=== PATIENT | female | born 1955 | race Caucasian/White ===

== ENCOUNTER 2016-09-03 12:57 | Emergency (ER) | payer MEDICAID ==
--- NOTE | 2016-09-04 20:08 | ER ---
ADMIT: 09/03/2016 RM/LOC: ER [facility] MR#: [id number] [address] [address] MALKA GORMAN [address] [place] [address] Emergency Room Report SEX: F AGE: 61 : 1955 DATE: 09/03/2016 ADDENDUM: This patient comes to the ER because she is having shortness of breath for the last 2 days. She was originally at Urgent Care and was sent here. In the ER, her O2 saturation is 96%. She has known COPD and she is a smoker. She was having decreased airway movement. We started an IV. She was given a DuoNeb that was rather repeated and received Decadron 15 mg IV. When I went to re-evaluate her, she was feeling better. Her chest x-ray showed a possible right lobe infiltrate. She was given Levaquin in the ER. I wrote a prescription for Levaquin and prednisone, and she is to continue with her inhalers. Return to the ER. Follow up with her primary if any shortness of breath or difficulty breathing or not keeping medicine down. EPIFANIO Oswald / Vanessa Vallejo MD / jaime JOB #: [id number] CC: Giuseppe Patel MD, Attending Physician UNKNOWN, Family Physician
[2016-11-30] MEDS ORDERED: ELIQUIS2.5 MG PO (12:01)
[2016-11-30] MEDS ORDERED: LEVOTHYROXINE50 MCG PO (12:01)
[2016-11-30] MEDS ORDERED: DUONEB DPS3 ML IH (12:02)
[2016-11-30] MEDS ORDERED: ANORO ELLIPTA 62.1 - IH (12:02)
[2016-11-30] MEDS ORDERED: PROVENTIL2.5 MG/3 M IH (12:02)
[2016-11-30] MEDS ORDERED: AUGMENTIN 250250 MG PO (12:03)
[2016-11-30] MEDS ORDERED: DELTASONE DPS10 MG PO (12:03)
[2016-11-30] MEDS ORDERED: NICOTINE PATCH1 EAC2 TD (12:03)
[2016-11-30] MEDS ORDERED: TYLENOL DPS325 MG PO (12:04)
[2016-11-30] MEDS ORDERED: VIBRAMYCIN-DPS100 M2 PO (12:04)
[2017-02-15] MEDS ORDERED: MAALOX DPS30 ML PO (14:39)
[2017-02-15] MEDS ORDERED: COLACE-DPS100 MG PO (14:39)
[2017-02-15] MEDS ORDERED: NITROSTAT0.4 MG SL (14:40)
[2017-02-15] MEDS ORDERED: SYMBICORT160 MCG/6 IH (14:42)
[2017-02-15] MEDS ORDERED: PEPCID DPS20 MG PO (14:42)
[2017-02-15] MEDS ORDERED: LEVAQUIN DPS500 MG PO (14:42)
== END 2016-09-03 15:20 | disposition home or self-care (01) ==
LOC: ER 12:57
DX: J44.1 Chronic obstructive pulmonary disease with (acute) exacerbation (principal); J18.9 Pneumonia, unspecified organism; E03.9 Hypothyroidism, unspecified; F17.200 Nicotine dependence, unspecified, uncomplicated; Z86.718 Personal history of other venous thrombosis and embolism; Z79.01 Long term (current) use of anticoagulants; Z79.899 Other long term (current) drug therapy

== ENCOUNTER 2016-11-25 10:15 | Inpatient (IN) | payer MEDICAID, OTHER ==
[~2016-11-25] VITALS: Ht 157.5 cm; Wt 37.9 kg
--- NOTE | ~2016-11-25 | ECH ---
Transthoracic Echocardiography Report (TTE) Demographics Patient Name MALKA GORMAN Date of Study 11/27/2016 Patient Number [id number] Visit Number [id number] Date of 1955 Room Number 424 Accession Number [id number] Gender Female Age 61 year(s) Referring James Fernandez Conceptor Aracelis Obrien [facility] Physician Liane Hassan MD Physician Interpreting Sergio AREVALO Mobile Lab Technician Physician Red Supervising Ordering Physician James Fernandez MD/P Nurse Stress Community Health Counselor Conclusions Contractility Score Summary Normal Left Ventricular contractility was noted. Summary Technically fair exam. The estimated left ventricular ejection fraction is 60-65%. Mild left ventricular hypertrophy. No significant valvular abnormalities. Recommendation The patient will be given the results of this study by the physician who ordered the exam. Procedure Type of Study TTE procedure:Echo Complete SF. Procedure Date Date: 11/27/2016 Start: 11:11 AM Technical Quality: Fair due to body habitus. Indications:Chest pain and Shortness of breath. Additional Indications:COPD Appropriate Use Criteria: 9 Height: 62 inches Weight: 78 pounds BSA: 1.28 m Rhythm: Within normal limits HR: 97 bpm BP: 127/71 mmHg M-Mode/2D Measurements LV Diastolic Dimension: 3.48 cm LV Systolic Dimension: 1.59 cm LV Septum Diastolic: 0.93 cm LV PW Diastolic: 1.08 cm AO Root Dimension: 2.79 cm Cardiac Output: 4.21 l/min LA Dimension: 2.56 cm Cardiac Index: 3.29 l/min*m RV Diastolic Dimension: 2.59 cm LA volume index: 29 ml/m LVOT: 1.63 cm LVOT VTI: 20.83 cm RV Base: 3.2 cm LV Stroke volume: 43.44 ml RV Mid: 1.8 cm LV Stroke volume index: 33.94 ml/m RV Length: 5.7 cm TAPSE: 1.9 cm TDI-S': 14 cm/s Doppler Measurements AV Mean Gradient: 3.22 mmHg MV Peak E-Wave: 0.82 m/s LVOT Peak Velocity: 1.07 m/s MV Peak A-Wave: 0.7 m/s AV Area (Continuity):1.81 cm MV P1/2t: 57.7 msec TR Velocity:1.81 m/s TR Gradient:13.09 mmHg MV Deceleration Time: 211.3 msec Estimated RAP:5 mmHg MV Area (PHT): 3.81 cm Estimated RVSP: 18 mmHg PV Peak Velocity: 0.94 m/s PV Peak Gradient: 3.56 mmHg Estimated PASP: 18.09 mmHg RA Area: 10.68 cm Findings Left Ventricle The left ventricle is normal in size . Mild left ventricular hypertrophy. Diastolic assessment reveals normal relaxation. Right Ventricle Normal right ventricle structure and function. Left Atrium Normal left atrial size. Right Atrium Normal right atrial size. Mitral Valve Normal mitral valve structure and function. Trivial mitral regurgitation by color Doppler. Aortic Valve Normal aortic valve structure and function. Tricuspid Valve Normal appearing tricuspid valve. Trivial tricuspid regurgitation by color Doppler. Pulmonic Valve Normal pulmonic valve structure and function. Pericardial Effusion No evidence of pericardial effusion. Miscellaneous Visualized portions of the aortic root and ascending aorta appear normal in size. Pleural Effusion No evidence of pleural effusion. Contractility Score LV regional wall motion:(0-Non visualized 1-Normal 2-Hypokinesis 3-Akinesis 4-Dyskinesis 5-Aneurysm) Signature
--- NOTE | 2016-11-26 14:30 | HP ---
ADMIT: 11/25/2016 RM/LOC: 424 [facility] MR#: [id number] [address] [facility] [address] [place], [place] [address] MALKA GORMAN [address] [place] [address] History and Physical SEX: F AGE: 61 : 1955 DATE OF SERVICE: CHIEF COMPLAINT: Severe shortness of breath, pleuritic right-sided chest pain, and cough. CLINICAL HISTORY: The patient is a very frail, debilitated, 61-year-old female from [place], [place], who usually sees Dr. Rob in [place] for her medical care. The patient is admitted to [facility] through the city-call system after presenting to the ER complaining of marked increase in shortness of breath, pleuritic chest pain, and persistent cough. She has a history of COPD with chronic respiratory failure. The patient notes that she was told 7-8 years ago that she had COPD. For the last 6 years, she has really struggled with symptomatic COPD, and for the last 7-8 months, has been on O2 continuously because of her chronic hypoxia. The patient continues to smoke despite her diagnosis of severe COPD and chronic respiratory failure, still is smoking about a half a pack per day even with her O2 on continuously. She notes for the last 2 to 3 days, she has been having some increased respiratory congestion and increased cough. Yesterday, she started having pleuritic right- sided chest discomfort and increased shortness of breath. This morning, the shortness of breath was so severe she had her family bring her to the emergency room. She is evaluated in the ER by Dr. Gerard, who noted on chest x- ray that she had significant right mid lung field infiltrate consistent with pneumonia. It was felt that she has acute pneumonia with associated pleuritic chest pain as well as a significant COPD exacerbation. Admitted at this time for aggressive treatment of her pneumonia and stabilization of her respiratory status. PAST MEDICAL HISTORY: Recent hospitalizations: The patient notes that she was last hospitalized in 2012, hospitalized in [place] with a DVT of her right lower extremity. She has been on anticoagulation since that time. She notes in 2011, she was hospitalized with severe abdominal pain and chronic diarrhea, and was diagnosed with Crohn's disease at that time. PAST SURGICAL HISTORY: Previous surgical procedures include colonoscopy in 2011. She also was noted to have had a left mastectomy in 2006 for breast cancer, a laparoscopic cholecystectomy in 2010 for her acute cholecystitis. She also notes remote past history of hysterectomy as well as previous orthopedic surgery on her knee for what sounds like a torn ACL. She has had no other recent hospitalizations or surgical procedures. CURRENT MEDICATIONS: Her current medications include; 1. Levothyroxine 50 mcg 1 daily. 2. Albuterol metered dose inhaler 2 puffs every 4 hours p.r.n. shortness of breath. 3. Eliquis 2.5 mg b.i.d. 4. Anoro one puff daily. 5. DuoNeb via twin jet nebulizer q.i.d. and p.r.n. ALLERGIES: SHE DENIES ANY KNOWN ALLERGIES. ADMIT: 11/25/2016 RM/LOC: 424 [facility] MR#: [id number] [address] [place] [phone] [facility] [place] [address] History and Physical SEX: F AGE: 61 : 1955 MEDICAL ILLNESSES: Her medical illnesses include severe COPD with chronic respiratory failure. She also has a history of hypothyroidism, Crohn disease, and coagulopathy. SOCIAL HISTORY: The patient is . She notes she continues to work. 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 She notes that she has 2 grown children. She denies any past history of alcohol or drug abuse. She does continue to smoke, used to be a pack-a-day smoker and has smoked for over 40 years, has cut down to a half pack a day in the last year since she was started on oxygen. FAMILY HISTORY: She notes there is a strong family history of diabetes, colon cancer as well as coronary artery disease. She does note that her mother of a cerebral aneurysm. Strong history of stroke and vascular disease in the family. REVIEW OF SYSTEMS: CONSTITUTIONAL: The patient complains of chronic fatigue, tiredness, weakness, poor activity tolerance due to her respiratory impairment. HEENT: No new eye, ear, nose, or throat complaints at this time. No upper respiratory congestion. She denies swallowing difficulties. Does have a history of some seasonal allergies. CARDIAC: She denies any history of coronary artery disease. No history of angina or myocardial infarction. No syncope. She denies orthopnea. GASTROINTESTINAL: She has had some chronic abdominal pain related to her Crohn's disease, eats a very limited diet because of her inflammatory bowel disease. A struggle to maintain her weight. GENITOURINARY: No voiding symptoms at this time. No flank pain or dysuria. MUSCULOSKELETAL: Some generalized arthritic discomfort, diffuse arthritis pain as well as low back pain. NEUROLOGIC: No history of strokes, seizures, or TIAs. ENDOCRINE: Does have history of breast cancer, now 10 years post diagnosis, clinically no evidence of disease. PHYSICAL EXAMINATION: VITAL SIGNS: Her temp is a 100.4, pulse 99, respirations 28, blood pressure 124/67, and O2 saturation 90% with oxygen of 4 L. Current weight 78 pounds. GENERAL: The patient is a 61-year-old female, who appears significantly older than her stated age. She is in no acute distress, but has difficulty talking because she is so short of breath, doing pursed lipped breathing. She is oriented x3. HEENT: Reveals her ears to be clear. Pupils are equal and reactive. Sclerae nonicteric. Her nose and throat are noninflamed. Oral mucous membranes are dry. NECK: Supple. No cervical adenopathy. No neck vein distention. LUNGS: Diminished throughout. Breath sounds are very coarse. She does have some rales in the right mid lung field. ADMIT: 11/25/2016 RM/LOC: 424 [facility] MR#: [id number] [address] [facility] [address] [place], [place] [address] MALKA GORMAN [address] [place] [address] History and Physical SEX: F AGE: 61 : 1955 HEART: Has a regular rhythm. Tachycardia noted. No evidence of failure. ABDOMEN: Thin, scaphoid, nontender. Bowel sounds are normoactive. She has no CVA or suprapubic tenderness. On exam of her chest, should note that she is status post left mastectomy. EXTREMITIES: Noted to have a trace of pedal and ankle edema. No calf tenderness. She has diminished pedal pulses. Feet are cool with poor peripheral circulation. She can move all extremities. No acutely inflamed joints. NEUROLOGIC: She has no focal deficit. Balance is poor due to her generalized weakness. Gait is unsteady. Cranial nerves II through XII are grossly intact. MENTAL STATUS EXAM: She is oriented x3. No significant depressive symptoms. Does not appear acutely anxious. INTEGUMENT: No rashes or areas of skin breakdown. Her pre-admission laboratory work revealed an elevated white count of 15,500, hemoglobin is 14.8, and hematocrit 44.6. Sodium was 133, potassium 4.0, BUN was 10 with a creatinine of 0.7, blood sugar at this time is 90. Procalcitonin was intermediate at 0.74. Lactic acid is 1.7. On her blood gases, on O2 at 4 L/minute, pH of 7.4, pCO2 is 40, and pO2 is 68. Chest x-ray shows severe emphysematous changes with right mid lung field infiltrate consistent with pneumonia. ASSESSMENT AT THE TIME OF ADMISSION: 1. Right middle lobe pneumonia. 2. Acute chronic obstructive pulmonary disease exacerbation due to pneumonia. 3. Severe chronic obstructive pulmonary disease with chronic respiratory failure. 4. Lmxam-ef-dccgeei respiratory failure. 5. History of Crohn's disease. 6. History of breast CA. Clinically, no evidence of disease. 7. Hypothyroidism. 8. Coagulopathy, on long-term anticoagulation. 9. Severe debility due to her advanced pulmonary disease. PLAN: Plan is to admit the patient to [facility]. We will treat aggressively for her pneumonia. We will attempt to stabilize her respiratory status. We will treat with IV Zosyn and IV vancomycin for antibiotic coverage. We will use IV steroids as well as frequent nebulizer treatments. Iron Ramirez MD/ jaime JOB #: [id number] CC: Iron Ramirez MD, Attending Physician Iron Ramirez MD, Family Physician
--- NOTE | 2016-11-27 08:22 | ER ---
ADMIT: 11/25/2016 RM/LOC: 424 [facility] MR#: [id number] [address] [place], [place] [address] MALKA GOMRAN [address] [place] [address] Emergency Room Report SEX: F AGE: 61 : 1955 DATE: 11/25/2016 TIME: 1015 hours. PRIMARY CARE: Nestor Rob MD in [place]. Please refer to my T-sheet for complete H and P. HISTORY OF PRESENT ILLNESS: Briefly, the patient is a 61-year-old, comes in with chest pain and short of breath, has been going on 2 to 3 days. She has a history of severe COPD. She is O2 dependent. She still smokes. She has had pneumonias in the past. She is anticoagulated with Eliquis. PHYSICAL EXAMINATION: VITAL SIGNS: Blood pressure is 126/83, heart rate 126, pulse 30, temp 101.1, and sat 96% on 2 L. GENERAL: She is in mild distress. HEENT: Grossly normal. LUNGS: Decreased breath sounds throughout. Mild respiratory distress with rhonchi noted. HEART: Tachy. ABDOMEN: Soft. SKIN: No rash. EMERGENCY DEPARTMENT COURSE: We did the whole sepsis pathway. We gave her a liter of normal saline bolus. We started antibiotics and blood cultures. Her lactate was 1.7. CBC normal except white count 5.5. Chemistries normal except sodium 133. Total bilirubin 1.9. Cardiac enzymes all negative. CBC is normal except white count of 15.5, blood cultures x2 were sent. Coags are essentially unremarkable. Chest x-ray revealed a right-sided pneumonia. We gave her a DuoNeb, Decadron 10 IV, started the antibiotics. I talked to Dr. Ramirez, will admit. ASSESSMENT: 1. Right-sided pneumonia. 2. Chronic obstructive pulmonary disease, O2 dependent. 3. Early sepsis. PLAN: Admit to the hospital. Alexx Gerard MD/ jaime JOB #: [id number] CC: Iron Ramirez MD, Attending Physician Iron Ramirez MD, Family Physician
[2016-11-30] MEDS ORDERED: ELIQUIS2.5 MG PO (12:01)
[2016-11-30] MEDS ORDERED: LEVOTHYROXINE50 MCG PO (12:01)
[2016-11-30] MEDS ORDERED: PROVENTIL2.5 MG/3 M IH (12:02)
[2016-11-30] MEDS ORDERED: ANORO ELLIPTA 62.1 - IH (12:02)
[2016-11-30] MEDS ORDERED: DUONEB DPS3 ML IH (12:02)
[2016-11-30] MEDS ORDERED: AUGMENTIN 250250 MG PO (12:03)
[2016-11-30] MEDS ORDERED: DELTASONE DPS10 MG PO (12:03)
[2016-11-30] MEDS ORDERED: NICOTINE PATCH1 EAC2 TD (12:03)
[2016-11-30] MEDS ORDERED: VIBRAMYCIN-DPS100 M2 PO (12:04)
[2016-11-30] MEDS ORDERED: TYLENOL DPS325 MG PO (12:04)
--- NOTE | 2016-12-29 19:22 | DS ---
ADMIT: 11/25/2016 RM/LOC: 424 [facility] MR#: [id number] [address] [place], [place] [address] MALKA GORMAN [address] [place] [address] General Discharge Summary SEX: F AGE: 61 : 1955 ADMISSION DATE: 11/25/2016 DISCHARGE DATE: 11/29/2016 ADMITTING DIAGNOSIS: As per history and physical. FINAL DIAGNOSES: 1. Severe chronic obstructive pulmonary disease with acute exacerbation. 2. Acute pneumonia. 3. Acute on chronic respiratory failure with hypoxia. 4. Chronic malnutrition. 5. Crohn disease. 6. Hypothyroidism. 7. Nicotine dependence/tobacco use disorder. 8. Past history of breast carcinoma status post left mastectomy. 9. History of prior deep venous thrombosis. 10.Ongoing Eliquis anticoagulation. COMPLICATIONS: None. OPERATIONS: None. CLINICAL HISTORY: The patient is a 61-year-old, white female, [facility] patient, admitted to [facility] after being seen in the emergency room complaining of severe shortness of breath, cough, and right-sided pleuritic chest pain. The patient has a history of severe COPD. She has been on O2 continuously for the last 7 to 8 months. She is usually followed by Dr. Rob in [place], but was having such severe respiratory distress, she came to the ER here in [place] where she lives. The patient is noted to have severe COPD with chronic respiratory failure and hypoxia. Despite her respiratory disease, she continues to smoke. When evaluated in the ER, she was found to have a right middle lobe infiltrate consistent with pneumonia, was felt to have acute pneumonia with COPD exacerbation. For further details of her clinical history as well as past medical history and pertinent findings on physical exam, please see dictated history and physical. LABORATORY AND X-RAY SUMMARY FROM THIS ADMISSION: Her initial CBC showed a white count of 15,500, hemoglobin 14.8, and hematocrit 44.6. On her second hospital day; white count was down to 11,900, hemoglobin was 11.4, and hematocrit 34.8. On admission, her protime was 12.4 with an INR of 1.19. PTT was 33. Urinalysis on admission was clear. Chemistry study showed a sodium of 133 and potassium 4.0. Her BUN was 10 with a creatinine of 0.7 and blood sugar 90. Repeat BMP on 11/26/2016, showed a BUN of 9, creatinine of 0.5, potassium of 3.4. Her procalcitonin on admission was normal at 0.74. Lactic acid was normal on admission at 1.7. Blood gases done on 11/25/2016, showed a pH of 7.41, pCO2 of 40, and PO2 of 68. Blood cultures drawn on admission showed no growth. Urine culture showed no growth. Blood type is noted to be A positive with negative antibody screen. Her chest x-ray in the ER showed inflammatory infiltrate and opacities in the right mid lung field consistent with pneumonia, marked emphysematous changes and changes of COPD. Serial ADMIT: 11/25/2016 RM/LOC: 424 [facility] MR#: [id number] [address] [place] [id number] [place] [address] General Discharge Summary SEX: F AGE: 61 : 1955 chest x-ray showed gradual resolution of the right-sided infiltrates, persistence of her marked emphysematous changes. Her chest x-ray on 11/29/2016, showed marked improvement in her infiltrates with resolving pneumonia. Doppler studies on both legs were obtained and showed no evidence of DVT. Her echocardiogram during this hospitalization showed an EF of 60% to 65%, left ventricular hypertrophy, changes of pulmonary hypertension, but no other significant valvular abnormalities. Her EKG showed sinus tachycardia with nonspecific ST-T wave changes. HOSPITAL COURSE: The patient was admitted with pneumonia and COPD exacerbation. She was started on aggressive IV antibiotic therapy with IV vancomycin and IV Zosyn. She was also started on IV Solu-Medrol and aggressively treated with nebulizer treatments. She was continued on supplemental O2 throughout the hospitalization because of her persistent hypoxia. Her hospital course was one of progressive slow improvement returning to her baseline due to level of dyspnea. Her right-sided pleuritic chest pain resolved after the first 2 to 3 days of her hospital stay. She continued to slowly improve and ultimately was felt to be doing well enough to dismiss to home on 11/29/2016. She was dismissed to home with planned followup with her primary care physician in [place], Dr. Rob. She was to see him in 5 to 6 days. We were going to send a copy of her labs and x-ray reports to him. DISCHARGE MEDICATIONS: Her medications at dismissal were to include: 1. Prednisone 20 mg b.i.d. initially to be tapered over 15 days. 2. Eliquis 2.5 mg b.i.d. 3. Levothyroxine 50 mcg daily. 4. Anoro Ellipta once daily. 5. DuoNeb via twin jet nebulizer q.i.d. 6. Habitrol patch 21 mg change daily. 7. Tylenol p.r.n. minor discomfort. 8. Augmentin 500 mg 2 b.i.d. for 7 days. 9. Doxycycline 100 mg b.i.d. for 10 days. She was strongly encouraged to stop smoking. She was to use her O2 continuously and follow up with her physician in [place] in 5 to 6 days. CONDITION ON DISCHARGE: Improved. LONG-TERM PROGNOSIS: Extremely poor. Iron Ramirez MD/ claudial JOB #: [id number] CC: Iron Ramirez MD, Attending Physician ADMIT: 11/25/2016 RM/LOC: 424 [facility] MR#: [id number] [address] [place] [id number] MALKA GORMAN [address] [facility] [place] [address] General Discharge Summary SEX: F AGE: 61 : 1955 Iron Ramirez MD, Family Physician
[2017-02-15] MEDS ORDERED: COLACE-DPS100 MG PO (14:39)
[2017-02-15] MEDS ORDERED: MAALOX DPS30 ML PO (14:39)
[2017-02-15] MEDS ORDERED: NITROSTAT0.4 MG SL (14:40)
[2017-02-15] MEDS ORDERED: PEPCID DPS20 MG PO (14:42)
[2017-02-15] MEDS ORDERED: SYMBICORT160 MCG/6 IH (14:42)
[2017-02-15] MEDS ORDERED: LEVAQUIN DPS500 MG PO (14:42)
== END 2016-11-29 12:20 | disposition home or self-care (01) | DRG 190 ==
LOC: ER 10:15 → 4PCU 11:27
PROVIDERS: ADMIT Family Medicine
DX: J44.0 Chronic obstructive pulmonary disease with (acute) lower respiratory infection (principal); J96.21 Acute and chronic respiratory failure with hypoxia; J18.9 Pneumonia, unspecified organism; E46 Unspecified protein-calorie malnutrition; Z99.81 Dependence on supplemental oxygen; K50.90 Crohn's disease, unspecified, without complications; Z68.1 Body mass index [BMI] 19.9 or less, adult; J44.1 Chronic obstructive pulmonary disease with (acute) exacerbation; E03.9 Hypothyroidism, unspecified; F17.210 Nicotine dependence, cigarettes, uncomplicated; Z85.3 Personal history of malignant neoplasm of breast; Z90.12 Acquired absence of left breast and nipple; Z86.718 Personal history of other venous thrombosis and embolism; Z79.01 Long term (current) use of anticoagulants; Z82.49 Family history of ischemic heart disease and other diseases of the circulatory system